=== PATIENT | female | born 1950 | race Caucasian/White ===

== ENCOUNTER 2016-12-22 19:10 | Observation (INO) | payer MEDICARE, OTHER ==
[2016-12-22] MEDS ORDERED: HYDROmorphone 1 MG/ML Syringe IM ONE (19:30)
[2016-12-22] MEDS ORDERED: Ondansetron 4 MG Tab.DIS PO ONE (19:30)
--- NOTE | 2016-12-22 19:34 | EDM.PDOC ---
ED HPI GENERAL MEDICAL PROBLEM - General Stated Complaint: SEVERE ABDOMINAL PAINS Time Seen by Provider: 12/22/16 19:15 Source of Information: Reports: Patient History Limitations: Reports: No Limitations - History of Present Illness INITIAL COMMENTS - FREE TEXT/NARRATIVE: Patient presents with complaints of abdominal pain since this AM. She does have a history of constipation. She is nauseated and has been throwing up. No sweating, chills, or fever. Medical history includes ovarian cancer, diagnosed in 2013. Surgical history includes appendectomy, cholecystectomy, hysterectomy , surgical removal of cancer with colostomy and reversal. No complaints of chest pain, SOB, headache. Rates pain an 8/10, it is a constant pain that occasionally worsens. Onset: Today Duration: Constant Location: Reports: Abdomen Quality: Reports: Ache Severity: Moderate Improves with: Reports: None Worsens with: Reports: None Associated Symptoms: Reports: Nausea/Vomiting - Related Data Allergies Allergy/AdvReac Type Severity Reaction Status Date / Time barium sulfate Allergy Severe Nausea and Verified 12/22/16 19:39 Vomiting Home Meds: Home Meds Dexamethasone 1 mg PO DAILY 12/22/16 [History] ED ROS GENERAL - Review of Systems Review Of Systems: See Below Constitutional: Reports: No Symptoms HEENT: Reports: No Symptoms Respiratory: Reports: No Symptoms Cardiovascular: Reports: No Symptoms Endocrine: Reports: No Symptoms GI/Abdominal: Reports: Abdominal Pain, Constipation, Distension, Nausea, Vomiting : Reports: No Symptoms Musculoskeletal: Reports: No Symptoms Skin: Reports: No Symptoms Neurological: Reports: No Symptoms Psychiatric: Reports: No Symptoms Hematologic/Lymphatic: Reports: No Symptoms Immunologic: Reports: No Symptoms ED EXAM, GI/ABD - Physical Exam Exam: See Below Exam Limited By: No Limitations General Appearance: Alert, WD/WN, No Apparent Distress Eyes: Bilateral: EOMI Ears: Normal TMs Throat/Mouth: Normal Inspection, Normal Oropharynx Head: Atraumatic, Normocephalic Neck: Normal Inspection, Supple Respiratory/Chest: No Respiratory Distress, Lungs Clear, Normal Breath Sounds, No Accessory Muscle Use, Chest Non-Tender Cardiovascular: Normal Peripheral Pulses, Regular Rate, Rhythm, No Murmur GI/Abdominal Exam: Distended, Tender, Abnormal Bowel Sounds (hypoactive) Back Exam: Normal Inspection, Full Range of Motion Extremities: Normal Inspection, Normal Range of Motion, Non-Tender, Normal Capillary Refill, Pedal Edema (2+ left foot, 1+ right) Neurological: Alert, Oriented, CN II-XII Intact, Normal Cognition, Normal Gait, Normal Reflexes, No Motor/Sensory Deficits Psychiatric: Normal Affect, Normal Mood Skin Exam: Warm, Dry, Intact, Normal Color Lymphatic: No Adenopathy Course - Radiology Interpretation Free Text/Narrative:: x-ray shows probable partial small bowel obstruction. Admission to observation Departure - Departure Time of Disposition: 21:07 (PLEASE USE ER HISTORY AND PHYSICAL FOR ADMISSION H AND P) Disposition: Refer to Observation Condition: Good Clinical Impression: Small bowel obstruction - Discharge Information
[2016-12-22] MEDS ORDERED: Sodium Chloride 0.9% 1,000 ML IV ONE (19:42)
[2016-12-22] MEDS ORDERED: Sodium Chloride 0.9% 10 ML Syringe FLUSH PRN (19:42)
[2016-12-22] MEDS ORDERED: HYDROmorphone 1 MG/ML Syringe IVPUSH ONE (19:52)
[2016-12-22 20:19] LABS: CHLORIDE,CL 105 mmol/L (98-107); SODIUM,NA 143 mmol/L (136-145)
[2016-12-22] MEDS ORDERED: Ondansetron 4 MG/2 ML SDV IV PRN (21:08)
[2016-12-22] MEDS ORDERED: Acetaminophen 650 MG Supp RECTAL PRN (21:08)
[2016-12-22] MEDS ORDERED: Ketorolac 30 MG/ML SDV IVPUSH PRN (21:08)
[2016-12-22] MEDS ORDERED: Polyethylene Glycol 3350 Powder 17 GM Packet PO PRN (21:08)
[2016-12-22] MEDS ORDERED: Sodium Phosphate,Monobasic/Sodium Phosphate,Dibasic Enema 133 ML Bottle RECTAL ONE (21:13)
[2016-12-22] MEDS ORDERED: Magnesium Citrate Solution 296 ML Bottle PO ONE (21:16)
[2016-12-22] MEDS: Metoclopramide 10 MG/2 ML SDV IVPUSH PRN (21:45)
[2016-12-22] MEDS: Lactated Ringers 1,000 ML IV SCH (21:50)
[2016-12-22] MEDS: HYDROmorphone 1 MG/ML Syringe IVPUSH PRN (22:43)
[2016-12-23] MEDS ORDERED: Sodium Phosphate,Monobasic/Sodium Phosphate,Dibasic Enema 133 ML Bottle RECTAL ONE (00:15)
[2016-12-23] MEDS ORDERED: Magnesium Citrate Solution 296 ML Bottle PO ONE ×2 (00:15→10:38)
[2016-12-23] MEDS: HYDROmorphone 1 MG/ML Syringe IVPUSH PRN (00:34)
[2016-12-23] MEDS: Lactated Ringers 1,000 ML IV SCH (05:48)
[2016-12-23] MEDS ORDERED: Enoxaparin 40 MG/0.4 ML Syringe SUBCUT SCH (08:00)
[2016-12-23] MEDS: Metoclopramide 10 MG/2 ML SDV IVPUSH PRN (10:50)
[2016-12-23] MEDS ORDERED: LETROZOLE 2.5 MG PO SCH (12:45)
--- NOTE | 2016-12-23 16:47 | PCM.PN ---
- General Info Date of Service: 12/23/16 Admission Dx/Problem (Free Text): small bowel obstruction Subjective Update: Patient is feeling better. She is passing gas, no longer nauseated. No bowel movements. Functional Status: Reports: Pain Controlled, Ambulating - Review of Systems General: Reports: No Symptoms HEENT: Reports: No Symptoms Pulmonary: Reports: No Symptoms Cardiovascular: Reports: No Symptoms Gastrointestinal: Reports: No Symptoms Genitourinary: Reports: No Symptoms Musculoskeletal: Reports: No Symptoms Skin: Reports: No Symptoms Neurological: Reports: No Symptoms Psychiatric: Reports: No Symptoms - Patient Data Vitals - Most Recent: Last Vital Signs Temp 37.5 C 12/23/16 14:00 Pulse 96 12/23/16 14:00 Resp 16 12/23/16 14:00 BP 122/71 12/23/16 14:00 Pulse Ox 98 12/23/16 14:00 Weight - Most Recent: 62.709 kg I&O - Last 24 Hours: Intake & Output 12/22/16 12/23/16 12/23/16 22:59 06:59 14:59 Intake Total 1000 620 Output Total 350 150 Balance 1000 270 -150 Med Orders - Current: Current Medications Acetaminophen (Tylenol) 650 mg RECTAL Q4H PRN PRN Reason: Mild pain/fever Dexamethasone (Dexamethasone) 1 mg PO DAILY [facility] Last Admin: 12/23/16 13:19 Dose: 1 mg Enoxaparin Sodium (Lovenox) 40 mg SUBCUT DAILY [facility] Last Admin: 12/23/16 07:53 Dose: 40 mg Hydromorphone HCl (Dilaudid) 0.5 mg IVPUSH Q2H PRN PRN Reason: Pain (severe 7-10) Last Admin: 12/23/16 00:34 Dose: 0.5 mg Lactated Ringer's (Ringers, Lactated) 1,000 mls @ 125 mls/hr IV ASDIRECTED [facility] Last Infusion: 12/23/16 05:52 Dose: 125 mls/hr Ketorolac Tromethamine (Toradol) 30 mg IVPUSH Q6H PRN PRN Reason: Pain (moderate 4-6) Metoclopramide HCl (Reglan) 10 mg IVPUSH Q8H PRN PRN Reason: Abdominal Pain Last Admin: 12/23/16 10:50 Dose: 10 mg Ondansetron HCl (Zofran) 4 mg IV Q6H PRN PRN Reason: Nausea/Vomiting Last Admin: 12/23/16 10:50 Dose: 4 mg Letrozole 2.5mg (Own Med) 0 each PO DAILY [facility] Last Admin: 12/23/16 14:17 Dose: 1 each Polyethylene Glycol (Miralax) 17 gm PO DAILY PRN PRN Reason: Constipation Last Admin: 12/23/16 10:49 Dose: 17 gm Sodium Chloride (Saline Flush) 10 ml FLUSH ASDIRECTED PRN PRN Reason: Keep Vein Open Last Admin: 12/22/16 21:48 Dose: 10 ml Zolpidem Tartrate (Ambien) 5 mg PO BEDTIME [facility] Discontinued Medications Hydromorphone HCl (Dilaudid) 1 mg IM ONETIME ONE Stop: 12/22/16 19:31 Last Admin: 12/23/16 04:09 Dose: Not Given Hydromorphone HCl (Dilaudid) 1 mg IVPUSH ONETIME ONE Stop: 12/22/16 19:53 Last Admin: 12/22/16 20:11 Dose: 1 mg Sodium Chloride (Normal Saline) 1,000 mls @ 999 mls/hr IV ONETIME ONE Stop: 12/22/16 20:42 Last Admin: 12/22/16 20:00 Dose: 999 mls/hr Magnesium Citrate (Citrate Of Magnesia) 296 ml PO ONETIME ONE Stop: 12/23/16 00:16 Last Admin: 12/23/16 00:26 Dose: 296 ml Magnesium Citrate (Citrate Of Magnesia) 296 ml PO ONETIME ONE Stop: 12/23/16 10:39 Last Admin: 12/23/16 10:49 Dose: 296 ml Ondansetron HCl (Zofran Odt) 4 mg PO ONETIME ONE Stop: 12/22/16 19:31 Last Admin: 12/22/16 19:47 Dose: 4 mg Sodium Biphosphate/Sodium Phosphate (Fleet Enema) 133 ml RECTAL ONETIME ONE Stop: 12/23/16 00:16 Last Admin: 12/23/16 00:26 Dose: 133 ml - Exam General: Alert, Oriented, Cooperative, No Acute Distress HEENT: Pupils Equal, Pupils Reactive Neck: Supple Lungs: Clear to Auscultation, Normal Respiratory Effort Cardiovascular: Regular Rate, Regular Rhythm GI/Abdominal Exam: Abnormal Bowel Sounds (hypoactive to all 4 quadrants, but improved when compared to yesterday), Other (Nasogastric tube to right nare. Clamped currently. Started on clear liquid diet.) Extremities: Normal Range of Motion, Pedal Edema (left > right) Peripheral Pulses: 2+: Posterior Tibial (L), Posterior Tibial (R), Dorsalis Pedis (L), Dorsalis Pedis (R) Skin: Warm, Dry, Intact Wound/Incisions: Healing Well Neurological: No New Focal Deficit Psy/Mental Status: Alert, Normal Affect, Normal Mood - Problem List Review Problem List Initiated/Reviewed/Updated: Yes - My Orders Last 24 Hours: My Active Orders 12/22/16 21:08 Patient Status [ADT] Routine Ambulate [RC] .PRN Oxygen Therapy [RC] .PRN VTE/DVT Education [RC] .PRN Vital Signs [RC] 06,10,14,18,22,02 Acetaminophen [Tylenol] 650 mg RECTAL Q4H PRN HYDROmorphone [Dilaudid] 0.5 mg IVPUSH Q2H PRN Ketorolac [Toradol] 30 mg IVPUSH Q6H PRN Ondansetron [Zofran] 4 mg IV Q6H PRN Polyethylene Glycol 3350 [MiraLAX] 17 gm PO DAILY PRN Resuscitation Status Routine 12/22/16 21:10 Nasogastric Orogastric Tube Insertion [OM.PC] Urgent Sequential Compression Device [OM.PC] Per Unit Routine 12/22/16 21:13 Antiembolic Devices [RC] 08,20 Metoclopramide [Reglan] 10 mg IVPUSH Q8H PRN 12/22/16 21:15 Lactated Ringers [Ringers, Lactated] 1,000 ml IV ASDIRECTED 12/23/16 08:00 Enoxaparin [Lovenox] 40 mg SUBCUT DAILY 12/23/16 12:45 Dexamethasone 1 mg PO DAILY Letrozole [Letrozole] 2.5 mg PO DAILY 12/23/16 12:52 Nasogastric Orogastric Tube Insertion [OM.PC] Routine 12/23/16 20:00 Zolpidem [Ambien] 5 mg PO BEDTIME 12/23/16 Breakfast NPO Now [Nothing per Oral Now Diet] [DIET] 12/23/16 Dinner Clear Liquid Diet [DIET] 12/23/16 Lunch Clear Liquid Diet [DIET] - Assessment Assessment:: partial small bowel obstruction - Plan Plan:: bowel rest NG to low intermittent suction promote bowel motility ambulate
[2016-12-23 16:51] VITALS: BP 115/67
--- NOTE | 2016-12-23 16:55 | PCM.DCSUM1 ---
Discharge Summary - Hospital Course Brief History: Patient seen in ER last night for abdominal pain, nausea and vomiting. Admitted for SBO. Put on bowel rest and NG tube to low intermittent suction. - Discharge Data Discharge Date: 12/23/16 Discharge Disposition: Home, Self-Care 01 Condition: Good - Discharge Diagnosis/Problem(s) (1) Small bowel obstruction SNOMED Code(s): 624719603 ICD Code: K56.69 - OTHER INTESTINAL OBSTRUCTION Status: Acute Priority: Medium Current Visit: Yes - Patient Summary/Data Hospital Course: Patient admitted observation last evening with NPO status, NG tube to low intermittent suction. Medications given for constipation, ambulation encouraged. Nursing reports 400 mL out of NG last evening. NG clamped this AM , patient advanced to clear liquids. She has begun having large bowel movements , is passing gas and is tolerating clear liquids. Will discharge her with orders for clear liquids and advance to full on . - Patient Instructions Diet: Drink 8-10+ Glasses/Day, Clear Liquid Diet, Full Liquid Diet Activity: As Tolerated Notify Provider of: Fever, Increased Pain, Nausea and/or Vomiting - Discharge Plan Home Medications: Home Meds Dexamethasone 1 mg PO DAILY 12/22/16 [History] Furosemide 20 mg PO DAILY PRN 12/22/16 [History] Letrozole 2.5 mg PO DAILY 12/22/16 [History] Zolpidem Tartrate 5 mg PO BEDTIME 12/22/16 [History] Patient Handouts: Small Bowel Obstruction, [id number] Forms: ED Department Discharge Referrals: Abbi Hoffman MD [Primary Care Provider] - - Discharge Summary/Plan Comment DC Time >30 min.: Yes Discharge Summary/Plan Comment: Follow up with your primary provider next week or sooner if needed. I want you to stick to a clear liquid diet for the rest of the day and tomorrow. Starting advance to a full liquid diet. If you do well with this on with no nausea, vomiting or abdominal pain, then you can advance to your regular diet. Make sure to drink enough water and walk as much as possible. Use walking for exercise as walking does help your bowels continue to move. If you have any questions or concerns please call. - General Info Admission Dx/Problem (Free Text: small bowel obstruction Subjective Update: Patient is feeling better. She is passing gas, no longer nauseated. No bowel movements. - Patient Data Vitals - Most Recent: Last Vital Signs Temp 37.5 C 12/23/16 14:00 Pulse 96 12/23/16 14:00 Resp 16 12/23/16 14:00 BP 122/71 12/23/16 14:00 Pulse Ox 98 12/23/16 14:00 Weight - Most Recent: 62.709 kg I&O - Last 24 hours: Intake & Output 12/23/16 12/23/16 12/23/16 06:59 14:59 22:59 Intake Total 620 200 Output Total 350 150 100 Balance 270 -150 100 Med Orders - Current: Current Medications Acetaminophen (Tylenol) 650 mg RECTAL Q4H PRN PRN Reason: Mild pain/fever Dexamethasone (Dexamethasone) 1 mg PO DAILY [facility] Last Admin: 12/23/16 13:19 Dose: 1 mg Enoxaparin Sodium (Lovenox) 40 mg SUBCUT DAILY [facility] Last Admin: 12/23/16 07:53 Dose: 40 mg Hydromorphone HCl (Dilaudid) 0.5 mg IVPUSH Q2H PRN PRN Reason: Pain (severe 7-10) Last Admin: 12/23/16 00:34 Dose: 0.5 mg Lactated Ringer's (Ringers, Lactated) 1,000 mls @ 125 mls/hr IV ASDIRECTED [facility] Last Infusion: 12/23/16 05:52 Dose: 125 mls/hr Ketorolac Tromethamine (Toradol) 30 mg IVPUSH Q6H PRN PRN Reason: Pain (moderate 4-6) Last Admin: 12/23/16 14:24 Dose: 30 mg Metoclopramide HCl (Reglan) 10 mg IVPUSH Q8H PRN PRN Reason: Abdominal Pain Last Admin: 12/23/16 10:50 Dose: 10 mg Ondansetron HCl (Zofran) 4 mg IV Q6H PRN PRN Reason: Nausea/Vomiting Last Admin: 12/23/16 10:50 Dose: 4 mg Letrozole 2.5mg (Own Med) 0 each PO DAILY [facility] Last Admin: 12/23/16 14:17 Dose: 1 each Polyethylene Glycol (Miralax) 17 gm PO DAILY PRN PRN Reason: Constipation Last Admin: 12/23/16 10:49 Dose: 17 gm Sodium Chloride (Saline Flush) 10 ml FLUSH ASDIRECTED PRN PRN Reason: Keep Vein Open Last Admin: 12/22/16 21:48 Dose: 10 ml Zolpidem Tartrate (Ambien) 5 mg PO BEDTIME [facility] Discontinued Medications Hydromorphone HCl (Dilaudid) 1 mg IM ONETIME ONE Stop: 12/22/16 19:31 Last Admin: 12/23/16 04:09 Dose: Not Given Hydromorphone HCl (Dilaudid) 1 mg IVPUSH ONETIME ONE Stop: 12/22/16 19:53 Last Admin: 12/22/16 20:11 Dose: 1 mg Sodium Chloride (Normal Saline) 1,000 mls @ 999 mls/hr IV ONETIME ONE Stop: 12/22/16 20:42 Last Admin: 12/22/16 20:00 Dose: 999 mls/hr Magnesium Citrate (Citrate Of Magnesia) 296 ml PO ONETIME ONE Stop: 12/23/16 00:16 Last Admin: 12/23/16 00:26 Dose: 296 ml Magnesium Citrate (Citrate Of Magnesia) 296 ml PO ONETIME ONE Stop: 12/23/16 10:39 Last Admin: 12/23/16 10:49 Dose: 296 ml Ondansetron HCl (Zofran Odt) 4 mg PO ONETIME ONE Stop: 12/22/16 19:31 Last Admin: 12/22/16 19:47 Dose: 4 mg Sodium Biphosphate/Sodium Phosphate (Fleet Enema) 133 ml RECTAL ONETIME ONE Stop: 12/23/16 00:16 Last Admin: 12/23/16 00:26 Dose: 133 ml Comments:: Please see prior progress note for physical assessment. *Q Meaningful Use (DIS) - VTE *Q VTE Criteria *Q: - Stroke *Q Stroke Criteria *Q: - AMI *Q AMI Criteria *Q:
[2016-12-23] MEDS ORDERED: Zolpidem 5 MG Tab PO SCH (20:00)
== END 2016-12-23 17:30 | disposition home or self-care (01) ==
LOC: VM.ED 19:10 → VM.MS 20:55
PROVIDERS: ADMIT Nurse Practitioner Family; ATTEND Nurse Practitioner Family
DX: K56.69 Other intestinal obstruction (principal)
CPT/HCPCS: 36415; 74020; 80053; 82550; 84484; 85025; 86140; 94760; 96361; 96372; 96374; 96375; 96376; 99285; A9270; G0378; J1170; J1650; J1885; J2405; J2765; J7030; J7050; J7120; J8540; 99217; 99220